=== PATIENT | female | born 1945 | race African-American/Black ===

== ENCOUNTER 2020-10-02 09:34 | Outpatient (CLI) | payer MEDICARE, SELFPAY | END 2020-10-02 09:35 | disposition home or self-care (01) | LOC: ANHCOVIDVC 09:34 | PROVIDERS: PCP Internal Medicine | DX: Z23 Encounter for immunization (principal) | CPT/HCPCS: 0001A; 91300 ==

== ENCOUNTER 2020-10-23 09:31 | Outpatient (CLI) | payer MEDICARE, SELFPAY | END 2020-10-23 09:32 | disposition home or self-care (01) | LOC: ANHCOVIDVC 09:32 | PROVIDERS: PCP Internal Medicine | DX: Z23 Encounter for immunization (principal) | CPT/HCPCS: 0002A; 91300 ==